=== PATIENT | female | born 1950 | race Caucasian/White ===

== ENCOUNTER → 2016-08-02 | Outpatient (CLI) | payer MEDICARE, BC ==
--- NOTE | 2016-08-02 11:09 | KCIC ---
PROCEDURE Coronary artery calcium score HISTORY Cardiovascular screening. Chronic fatigue. Dyspnea on exertion. TECHNIQUE Computed tomography of the heart was performed with ECG gating, suspended respiration and without the administration of contrast material. Post processing was performed on the 3-D computer workstation using diastolic phase images to measure the amount of coronary vascular calcium. Scoring was acquired using the Agatston Method. PQRS: One or more the following individualized dose reduction techniques were utilized for the study: 1. Automated exposure control. 2. Adjustment of the mA and/or kV according to patient size. 3. Use of iterative reconstruction technique. COMPARISON None. FINDINGS Thorax: Great vessels are normal caliber. Cardiac size normal, no pericardial effusion. There is mild mitral annular calcification. Minimal aortic annular calcification. No pleural abnormality. 3 millimeter nodule left upper lobe, image 15. 3 millimeter nodules posterior right and left lower lobes, image 40. According to Fleischner Society Recommendations, if the patient does not have significant risk factors for lung malignancy such as a smoking history, no further follow up is required. Radiology, 2004;237(2):395-400. Note that this CT exam is limited to the heart and adjacent structures. Coronary arteries: CALCIUM IS NOT PRESENT. TOTAL AGATSTON CALCIUM SCORE EQUALS 0. No calcification is seen in the left main, LAD, RCA, or circumflex artery. This does not absolutely rule out the presence of atherosclerotic plaque, including unstable plaque, but does imply a very low likelihood of significant luminal narrowing or obstruction. A negative test may be consistent with a low risk of cardiovascular event in the next 2 to 5 years. IMPRESSION No coronary artery calcium is identified. RECOMMENDATIONS Healthy lifestyle choices including cessation of smoking and eating appropriately and exercise are encouraged. Additional supporting information concerning the findings and recommendation contained within this report can be found in the consensus statements on coronary vascular calcium published by the [place] [employer] and [place] [employer] and Prevention 5 Conference (Circulation 1996; 94: 2111-5561; J Am Cesar Cardiol 2000; 36: 326-340 and Circulation 2000; 101: 111-116). Electronically signed by: Higinio Snyder MD (Aug 02, 2016 11:08:08)
--- NOTE | 2016-08-02 11:34 | KCIC ---
PROCEDURE Two-view chest. HISTORY Dyspnea, fatigue. COMPARISON No comparison. FINDINGS The cardiomediastinal silhouette is normal. Lungs are clear. No pleural effusion or pneumothorax. Degenerative endplate spurring in the thoracic spine. There is mild right convexity lumbar rotoscoliosis. There is old left posterior 7th rib fracture. IMPRESSION No acute cardiopulmonary process. Electronically signed by: Higinio Snyder MD (Aug 02, 2016 11:31:05)
== END | disposition home or self-care (01) ==
LOC: KCIC CT 08:52
PROVIDERS: ATTEND Family Medicine
DX: Z13.6 Encounter for screening for cardiovascular disorders (principal); I70.0 Atherosclerosis of aorta; I34.8 Other nonrheumatic mitral valve disorders; R53.83 Other fatigue; R06.00 Dyspnea, unspecified; M41.86 Other forms of scoliosis, lumbar region; S22.32XG Fracture of one rib, left side, subsequent encounter for fracture with delayed healing; X58.XXXD Exposure to other specified factors, subsequent encounter
CPT/HCPCS: 71020; 75571

== ENCOUNTER → 2016-10-11 | Outpatient (CLI) | payer MEDICARE ==
--- NOTE | 2016-10-11 11:18 | RAD ---
Abdominal ultrasound, 10/11/2016: History: Alcohol dependence The gallbladder is within normal limits in size. There is no sonographic evidence of cholelithiasis. The gallbladder wall is not thickened. No bile duct dilatation is seen. The liver is within normal limits in size. There is no evidence of a hepatic mass. The visualized portions of the pancreas are unremarkable. The spleen is of normal size. There is aortic atherosclerosis without evidence of aneurysm. The inferior vena cava is unremarkable. There is a 2.2 cm hyperechoic lesion seen in the right kidney. No other renal mass is evident. The kidneys show no evidence of obstruction. IMPRESSION: 1. Hyperechoic right renal mass arising the possibility of a lipoma or angiomyolipoma. Malignancy cannot be excluded. CT scanning is suggested for further evaluation. 2. Mild aortic atherosclerosis. 3. The abdominal ultrasound is otherwise unremarkable.
== END | disposition home or self-care (01) ==
LOC: US 07:53
PROVIDERS: ATTEND Nurse Practitioner Family
DX: I70.0 Atherosclerosis of aorta (principal)
CPT/HCPCS: 76700

== ENCOUNTER → 2016-10-18 | Outpatient (CLI) | payer MEDICARE ==
--- NOTE | 2016-10-22 11:41 | RESP ---
DATE OF SERVICE: 10/18/2016 The patient underwent full pulmonary function testing dated 10/18/2016. FEV1 to FVC ratio was 70%. FEV1 was 82% of predicted at 1.83 liters, FVC was 89% of predicted with 2.60 liters. There was a 12% bronchodilator response. Total lung capacity was elevated. Residual volume was elevated. IMPRESSION: 1. Mild airflow limitation. 2. Mild bronchodilator response. 3. Preserved diffusion capacity. BECKI PARMAR MD DR: MAIK/yuriy JOB#: [id number] / [id number] EVI Singer MD
== END | disposition home or self-care (01) ==
LOC: PF 09:55
PROVIDERS: ATTEND Internal Medicine Pulmonary Disease
DX: R06.02 Shortness of breath (principal)
CPT/HCPCS: 94060; 94729

== ENCOUNTER → 2016-10-21 | Outpatient (CLI) | payer MEDICARE ==
[~2016-10-21] MED LIST: IOHEXOL 300 MG/ML 75 ML VIAL IV ONE
--- NOTE | 2016-10-21 13:08 | RAD ---
Multiphase CT of the kidneys with and without contrast, 10/21/2016: History: Renal mass Imaging of the kidneys was performed prior to and following an IV bolus injection of iodinated contrast material. The postcontrast scans were obtained in arterial, portal venous and excretory phases. There is a 2.2 cm mass in the posterior aspect of the right kidney. On the noncontrast scans it demonstrates an internal CT number of 30 Hounsfield units. No fat is seen within this lesion. The postcontrast scans show heterogeneous enhancement up to approximately 150 Hounsfield units. In the delayed, excretory phase there is partial washout of the contrast. The appearance is that of a solid vascular neoplasm. No other renal mass is seen. The kidneys show no evidence of obstruction. The renal collecting systems and proximal ureters are unremarkable. No hepatic abnormality is detected. The gallbladder is unremarkable. No pancreatic abnormality is detected. The spleen is of normal size. There is mild aortic calcific plaquing. No retroperitoneal or mesenteric adenopathy is seen. There is a mild lumbar scoliosis with associated multilevel degenerative change. IMPRESSION: Solid, enhancing 2.2 cm right renal mass. Renal cell carcinoma is a likely possibility. PQRS Compliance Statement: One or more of the following individualized dose reduction techniques were utilized for this examination: 1. Automated exposure control 2. Adjustment of the mA and/or kV according to patient size 3. Use of iterative reconstruction technique
== END | disposition home or self-care (01) ==
LOC: CT 08:30
PROVIDERS: ATTEND Nurse Practitioner Family
DX: N28.1 Cyst of kidney, acquired (principal); N28.89 Other specified disorders of kidney and ureter
CPT/HCPCS: 74170; Q9967

== ENCOUNTER → 2016-11-19 | Outpatient (CLI) | payer MEDICARE ==
--- NOTE | 2016-11-20 08:16 | KCIC ---
Bilateral digital screening mammograms with CAD: HISTORY Routine screening COMPARISON Comparison is made to previous examinations dated 02/22/2015 and 12/10/2011. FINDINGS Breast density category C. The skin and nipples show no abnormalities. No abnormal lymph nodes are seen in the axilla. The breast parenchyma shows heterogeneous density. There continue to be patchy areas of parenchymal asymmetry in the breasts which are unchanged. There are no dominant masses, suspicious calcifications or architectural distortions. IMPRESSION No evidence of malignancy. Recommend routine annual mammographic screening. This study was interpreted with the benefit of Computerized Aided Detection (CAD). Mammography is not 100% sensitive in detecting breast cancer. Therefore, a self breast exam and a clinical breast exam are very important. A negative mammogram does not negate a clinically suspicious finding and should not result in a delay in biopsying a clinically suspicious abnormality. BI-RADS category 2: Benign. This patient's information has been entered into a reminder system for the patient to be notified with the results of this examination and a target date for her next mammograms. Electronically signed by: Lena Rodriguez MD (November 20, 2016 08:14:26)
== END | disposition home or self-care (01) ==
LOC: KCIC MAMMO 13:06
PROVIDERS: ATTEND Family Medicine
DX: Z12.31 Encounter for screening mammogram for malignant neoplasm of breast (principal)
CPT/HCPCS: G0202; 77067

== ENCOUNTER → 2016-11-22 | Outpatient (CLI) | payer MEDICARE ==
--- NOTE | 2016-11-22 12:56 | RAD ---
Indication persistent cough. Axial noncontrast images of the chest were obtained. No prior CT imaging of the entire chest is available for comparison purposes. Imaging through the upper abdomen is unremarkable. The thoracic aorta appears unremarkable. There is no significant hilar or mediastinal adenopathy. No acute parenchymal infiltrate is seen. Significant interstitial or emphysematous changes are not seen. There is no dominant soft tissue mass. IMPRESSION: No acute or significant finding seen in the chest PQRS Compliance Statement: One or more of the following individualized dose reduction techniques were utilized for this examination: 1. Automated exposure control 2. Adjustment of the mA and/or kV according to patient size 3. Use of iterative reconstruction technique
== END | disposition home or self-care (01) ==
LOC: CT 12:10
PROVIDERS: ATTEND Internal Medicine Pulmonary Disease
DX: R05 Cough (principal)
CPT/HCPCS: 71250

== ENCOUNTER → 2017-03-10 | Outpatient (CLI) | payer MEDICARE ==
--- NOTE | 2017-03-10 11:55 | KCIC ---
CT Abdomen and Pelvis without contrast History: Right inguinal hernia, recent bulge of the right groin, history of right partial nephrectomy Technique: Noncontrast CT imaging was performed of the abdomen and pelvis. Multiplanar images are reviewed. Exposure: One or more of the following individualized dose reduction techniques were utilized for this examination: 1. Automated exposure control 2. Adjustment of the mA and/or kV according to patient size 3. Use of iterative reconstruction technique. Comparison: October 21, 2016 Findings: There is no abnormality of the limited visualized lung bases.Accurate evaluation of abdominal visceral organs is limited without intravenous contrast. There is no obvious abnormality of the spleen, liver, or pancreas. There is no adrenal nodularity. Gallbladder is present without obvious intraluminal abnormality by CT. Accurate evaluation of bowel is limited without oral contrast. There is a small umbilical fascial defect, does not contain any bowel. There is minimal fat in the inguinal canals greater on the right, no internal bowel. There is likely right adnexal cyst on the order of 3.5 cm transverse by 2.7 cm AP. There is variable retained stool in the colon somewhat greater in the right colon. Normal appendix is visualized. There are now some foci of calcification along the surface of the right kidney. Exam does not accurately evaluate for residual mass, no obvious exophytic mass of the right kidney. There has been interval partial right nephrectomy. There is no hydronephrosis of either kidney. There is zcpi-en-yddqujkg S-shaped scoliosis of the lumbar spine. There is multilevel lumbar facet degenerative change. Impression: 1. There is minimal fat in the inguinal canals greater on the right, no bowel. No bowel containing hernia is identified. There is retained stool somewhat greater in the right colon. 2. There are now some foci of calcification along the margin of the right kidney, interval partial right nephrectomy. 3. There is S-shaped scoliosis of the lumbar spine, multilevel lumbar facet degenerative change. 4. There is likely right adnexal cyst up to 3.5 cm. Electronically signed by: Rolo Hewitt MD (03/10/2017 11:52 AM) [facility]
== END | disposition home or self-care (01) ==
LOC: KCIC CT 10:51
PROVIDERS: ATTEND Nurse Practitioner Family
DX: K40.90 Unilateral inguinal hernia, without obstruction or gangrene, not specified as recurrent (principal); M41.9 Scoliosis, unspecified; Z90.5 Acquired absence of kidney
CPT/HCPCS: 74176

== ENCOUNTER → 2018-05-08 | Outpatient (CLI) | payer MEDICARE ==
--- NOTE | 2018-05-08 16:06 | KCIC ---
MRI of the lumbar spine without contrast 05/08/2018 CLINICAL HISTORY: Chronic low back pain which radiates down the right leg worsening of late. TECHNIQUE: Unenhanced T1-weighted and T2-weighted sagittal and axial and inversion recovery sagittal images of the lumbar spine were obtained. FINDINGS: Mild to moderate S-shaped curvature of the thoracolumbar spine is seen. Degenerative signal changes and loss of height are seen involving all of the disks of the lumbar spine. Degenerative signal changes are seen within the marrow surrounding these discs. The conus medullaris is normal morphology, position, and signal characteristics. At the L1-2 disc space there is a mild generalized disc bulge. Degenerative changes are seen involving the facet joints bilaterally. There is mild ligamentum flavum hypertrophy bilaterally. These findings do not result in significant central spinal canal or neural foraminal stenosis. At the L2-3 disc space there is a mild to moderate generalized disc bulge. Degenerative changes are seen involving the facet joints bilaterally. There are small facet joint effusions. There is moderate ligamentum flavum hypertrophy bilaterally. The disc bulge is eccentric to the left. These findings when combined result in mild left greater than right central spinal canal stenosis. Mild left neural foraminal stenosis is seen. The right neural foramen is patent. At the L3-4 disc space there is a moderate generalized disc bulge. This is eccentric to the left. Degenerative changes are seen involving the facet joints bilaterally. There is moderate ligamentum flavum hypertrophy bilaterally. These findings when combined result in mild to moderate central spinal canal stenosis. Mild left neural foraminal stenosis is seen. The right neural foramen is patent. At the L4-5 disc space there is a mild to moderate generalized disc bulge. This is eccentric to the right. Degenerative changes are seen involving the facet joints bilaterally. There is mild to moderate ligamentum flavum hypertrophy bilaterally. These findings when combined result in mild to moderate central spinal canal stenosis. Mild right neural foraminal stenosis is seen. The left neural foramen is patent. At the L5-S1 disc space there is a mild generalized disc bulge. Degenerative changes are seen involving the facet joints bilaterally. These findings when combined do not result in significant central spinal canal or neural foraminal stenosis. IMPRESSION: The changes of degenerative disc disease are seen throughout the lumbar spine. These findings result in mild left greater than right central spinal canal stenosis at L2-3 and mild to moderate central spinal canal stenosis at L3-4 and L4-5. Mild left neural foraminal stenosis is seen at L2-3 and L3-4. Mild right neural foraminal stenosis is seen at L4-5. Electronically signed by: Brando Ku MD (05/08/2018 4:03 PM) [facility]
== END | disposition home or self-care (01) ==
LOC: KCIC MRI 15:15
PROVIDERS: ATTEND Nurse Practitioner Family
DX: M51.36 Other intervertebral disc degeneration, lumbar region (principal); M47.896 Other spondylosis, lumbar region; M48.061 Spinal stenosis, lumbar region without neurogenic claudication; M54.41 Lumbago with sciatica, right side; G89.29 Other chronic pain; M85.80 Other specified disorders of bone density and structure, unspecified site; M41.9 Scoliosis, unspecified; M48.9 Spondylopathy, unspecified
CPT/HCPCS: 72148

== ENCOUNTER → 2018-09-14 | Outpatient (CLI) | payer MEDICARE ==
--- NOTE | 2018-09-14 10:10 | CARD ---
MR#: [id number] Date of Study: 09/14/2018 Ordering Physician: AYDEE VANCE, Referring Physician: AYDEE VANCE, Tech: Kathy Rader RDCS APPROVED REPORT EXAM: Two-dimensional and M-mode echocardiogram with Doppler and color Doppler. Other Information Quality : Good Technically limited study due to body habitus. INDICATION Murmur 2D DIMENSIONS RVDd2.2 (2.9-3.5cm)Left Atrium(2D)2.5 (1.6-4.0cm) IVSd0.7 (0.7-1.1cm)Aortic Root(2D)2.5 (2.0-3.7cm) LVDd3.7 (3.9-5.9cm)LVOT Diameter1.9 (1.8-2.4cm) PWd0.7 (0.7-1.1cm)LVDs2.3 (2.5-4.0cm) FS (%) 30.0 %SV40.8 ml LVEF(%)60.0 (>50%) Aortic Valve AoV Peak [place].110.0cm/sAoV VTI23.5cm AO Peak GR.4.8mmHgLVOT Peak [place].89.8cm/s LVOT VTI 23.00cmAO Mean GR.3mmHg GOYO (VMAX)2.76kl7GPU (VTI)2.81cm2 Mitral Valve MV E Ctzetbob22.0cm/sMV DECEL PDQD053zo MV A Jrakmckg89.7cm/sMV QFO74vk E/A Ratio1.1MVA (PHT)3.95cm2 TDI E/Lateral E'9.8E/Medial E'15.3 Tricuspid Valve TR P. Mkrwipqm552nf/sRAP TRATITNK8siLj TR Peak Gr.50mnKyFFUH10puOy Pulmonary Vein S1 Nboqgwtq30.0cm/sD2 Wvhfudlk71.2cm/s LEFT VENTRICLE The left ventricle is normal size. There is normal left ventricular wall thickness. The left ventricu lar systolic function is normal and the ejection fraction is within normal range. The Ejection Fracti on is 55-60%. There is normal LV segmental wall motion. Transmitral Doppler flow pattern is Grade I-a bnormal relaxation pattern. RIGHT VENTRICLE The right ventricle is normal size. The right ventricular systolic function is normal. ATRIA The left atrium size is normal. The right atrium size is normal. The interatrial septum is intact wit h no evidence for an atrial septal defect or patent foramen ovale as noted on 2-D or Doppler imaging. AORTIC VALVE The aortic valve is normal in structure and function. Doppler and Color Flow revealed no significant aortic regurgitation. There is no significant aortic valvular stenosis. MITRAL VALVE The mitral valve is calcified but opens well. There is no evidence of mitral valve prolapse. There is no mitral valve stenosis. Doppler and Color-flow revealed trace mitral regurgitation. TRICUSPID VALVE The tricuspid valve is normal in structure and function. Doppler and Color Flow revealed trace tricus pid regurgitation. There is mild pulmonary hypertension. The PA pressure was estimated at 33 mmHg. Th ere is no tricuspid valve stenosis. PULMONIC VALVE The pulmonic valve is not well visualized. Doppler and Color Flow revealed no pulmonic valvular regur gitation. There is no pulmonic valvular stenosis. GREAT VESSELS The aortic root is normal in size. The ascending aorta is normal in size. The IVC is normal in size a nd collapses >50% with inspiration. PERICARDIAL EFFUSION There is no evidence of significant pericardial effusion. Critical Notification Critical Value: No <Conclusion> The left ventricular systolic function is normal and the ejection fraction is within normal range. Th e Ejection Fraction is 55-60%. There is normal LV segmental wall motion. Doppler and Color Flow revealed trace tricuspid regurgitation. There is mild pulmonary hypertension. The PA pressure was estimated at 33 mmHg. Signed by : Beni Yee, Electronically Approved : 09/14/2018 10:10:36
--- NOTE | 2018-09-14 11:29 | RAD ---
MR#: [id number] Date of Study: 09/14/2018 Ordering Physician: AYDEE VANCE, Referring Physician: VIKRAM LITTLE Tech: TESSA [place], ARRT (R) (N) APPROVED REPORT Test Type: Exercise Stress Nurse/Tech: Emmanuel DRISCOLL Test Indications: Dyspnea on exertion Cardiac History: See EMR Medications: See EMR Medical History: Kidney CA stage III, Partial nephrectomy Resting ECG: SR Resting Heart Rate: 78 bpm Resting Blood Pressure: 113/68mmHg Pretest Chest Pain: No chest pain Nurse/Tech Notes Lungs sounds clear, though diminished. Heart tones regular. Consent: The procedure was explained to the patient in lay terms. Informed consent was witnessed. Ashutosh eout was entered into [employer]. History and Stress Test performed by RT Sarah (R) (N) Stress Symptoms Dyspnea POST EXERCISE Reason for Termination: Reached target heart rate Target HR: Yes Max HR: 149 bpm 114% of Maximum Predicted HR: 130 bpm Exercise duration: 8:20 min:sec, 3 Stage Exercise capacity: 10.0METs Max Blood Pressure: 146/70mmHg Blood Pressure response to exercise: Normal blood pressure response during stress. Chest Pain: No. Arrhythmia: No. ST Change: No. INTERPRETATION Stress EKG Conclusion: Moderate artifact due to motion. No significant ischemia noted. Imaging Protocol IMAGE PROTOCOL: Rest Tc-99m/stress Tc-99m 1 day Rest: Stress: Viability: Radiopharm.Tc99m NfqembyyaMx47a Sestamibi Zqwt17yVe 32.3mCi Img Date 09/14/2018 09/14/2018 Inj-Img Bcik79nom. 60min. Rest Admin Site:IV - Left AntecubitalAdministrator:NANDO Vieyra Stress Admin Site: IV - Left AntecubitalAdministrator: RT Sarah (R)(N) STRESS DATA End Diast. Vol.35.0mlLVEDV index BSA23.0ml End Syst. Vol.2.0mlLVESV index BSA1.0ml Myocardial Mass74.0gEject. Ntvvekoa20.0% Stress Scores Regional WT0.00Summed WT0.00 Regional WM0.00Summed WM0.00 The rest and stress images show normal perfusion, normal contraction and thickening. LV Perf. Quant 17 Seg. SSS0.00 17 Seg. SRS0.00 17 Seg. SDS0.00 Stress Defect Extent (% LAD)0.00Rest Defect Extent (% LAD)0.00Rev. Defect Extent (% LAD)0.00 Stress Defect Extent (% LCX) 0.00Rest Defect Extent (% LCX)0.00Rev. Defect Extent (% LCX)0.00 Stress Defect Extent (% RCA)0.00Rest Defect Extent (% RCA)0.00Rev. Defect Extent (% RCA)0.00 Stress Defect Extent (% JACKY)0.00Rest Defect Extent (% JACKY)0.00Rev. Defect Extent (% JACKY)0.00 Other Information Quality:Good Risk Assessment: Low Risk Conclusion 1. No evidence of EKG changes with stress testing. 2. Normal perfusion at stress/rest. 3. Low risk study. 4. EF > 60%. Signed by : Beni Yee, Electronically Approved : 09/14/2018 11:29:22
== END | disposition home or self-care (01) ==
LOC: NM 07:34
PROVIDERS: ATTEND Internal Medicine Cardiovascular Disease
DX: I27.20 Pulmonary hypertension, unspecified (principal); R00.8 Other abnormalities of heart beat; Z85.528 Personal history of other malignant neoplasm of kidney
CPT/HCPCS: 78452; 93017; 93306; 96374; 96376; A9500

== ENCOUNTER 2019-01-17 16:07 | Emergency (ER) | payer MEDICARE ==
[~2019-01-17] VITALS: Ht 157.5 cm; Wt 56.7 kg
[2019-01-17 16:09] VITALS: BP 127/65
[2019-01-17] MEDS ORDERED: METH4TAB2 PO (16:35)
[2019-01-17] MEDS ORDERED: DICL50TA4 PO (16:35)
--- NOTE | 2019-01-17 16:35 | PHYS DOC ---
Past Medical History Past Medical History: Cancer, Other Additional Past Medical Histor: KIDNEY CA,SLEEP ISSUES Past Surgical History: Other Additional Past Surgical Histo: FACIAL,PARTIAL NEPHRECTOMY Alcohol Use: None Drug Use: None Adult General Chief Complaint Chief Complaint: KNEE INJURY HPI HPI Patient is a 68 year old female who presents to the ED today complaining of mild left lateral knee pain described as sharp and intermittent that occurred when she was walking up 1 step. Patient denies falling. She states the pain is worse on flexion of the knee area and she states immobilization relieves the pain. She is requesting an MRI. Review of Systems Review of Systems Constitutional: Denies fever or chills [] Musculoskeletal: Reports left knee pain Integument: Denies rash or skin lesions [] Neurologic: Denies headache, focal weakness or sensory changes [] All other systems were reviewed and found to be within normal limits, except as documented in this note. Allergies Allergies Allergies Coded Allergies Type Severity Reaction Last Updated Verified morphine Allergy Mild 10/21/16 Yes Physical Exam Physical Exam Constitutional: Well developed, well nourished, no acute distress, non-toxic appearance. [] Extremities: Left knee with no obvious deformity. Slight tenderness on palpation of the left lateral knee. Limited range of motion to the left knee due to pain. +2 left pedal pulse. Cap refill less than 2 seconds left toes. Sensation intact to the left lower extremity. Neurologic: Alert and oriented X 3, normal motor function, normal sensory function, no focal deficits noted. [] Psychologic: Affect normal, judgement normal, mood normal. [] Current Patient Data Vital Signs Vital Signs Date Time Temp Pulse Resp B/P (MAP) Pulse Ox O2 Delivery O2 Flow Rate FiO2 01/17/19 16:09 98.3 82 17 127/65 (85) 96 Room Air 98.3 EKG EKG [] Radiology/Procedures Radiology/Procedures [] Course & Med Decision Making Course & Med Decision Making Pertinent Labs and Imaging studies reviewed. (See chart for details) This is a 68-year-old female patient who presents to the ED today with complaints of left knee pain, no known injury. Requesting MRI of the knee. Informed patient we do not do MRI is of the knee in the emergency room. Recommended following up with orthopedic doctor as well as primary care doctor. Given prescription for diclofenac and Medrol Dosepak. Provided immobilizer off the knee applied by the ED RN, neurovascular exam is intact post-immobilizer application. Ice elevation encouraged. Dragon Disclaimer Dragon Disclaimer This electronic medical record was generated, in whole or in part, using a voice recognition dictation system. Departure Departure Impression: Primary Impression: Left knee pain Disposition: 01 HOME, SELF-CARE Condition: STABLE Referrals: HENRY TAYLOR MD (PCP) follow up in 1 week NANY ROBBINS II, MD follow up in 1 week Patient Instructions: Knee Pain, Qfap-pv-Dlom Additional Instructions: You were evaluated in the emergency room for left knee pain wear the immobilizer provided as tolerated and needed. Please contact your own primary care doctor or the orthopedic doctor provided and they will see to up for an outpatient MRI. Scripts Diclofenac Sodium (DICLOFENAC SODIUM) 50 Mg Tablet.dr 1 TAB PO BID, #20 TAB 0 Refills Prov: ISAI DESOUZA RODOLFO 01/17/19 Methylprednisolone (MEDROL) 4 Mg Tab.ds.pk 1 PKG PO UD, #1 PKG Prov: MAEGANMIRIAMSimranISAI VARGASN 01/17/19 Problem Qualifiers Primary Impression: Left knee pain Chronicity: acute Qualified Codes: M25.562 - Pain in left knee ISAI DESOUZA [employer] OP Jan 17, 2019 16:35
== END 2019-01-17 16:51 | disposition home or self-care (01) ==
LOC: ER 16:07
DX: M25.562 Pain in left knee (principal); Z88.5 Allergy status to narcotic agent
CPT/HCPCS: 29505; 99283

== ENCOUNTER → 2020-07-03 | Outpatient (CLI) | payer MEDICARE ==
[~2020-07-03] MED LIST changes: +DICL50TA4 PO; -IOHEXOL 300 MG/ML 75 ML VIAL IV ONE; +METH4TAB2 PO
--- NOTE | 2020-07-03 18:58 | KCIC ---
DEXA scan 07/03/2020 Clinical History: Postmenopausal female. Risk factors for osteoporosis. Technique: DEXA of the lumbar spine and left hip was performed. FINDINGS: Comparison study is dated 08/30/2011. The bone mineral density of the lumbar spine is g/cm2 which corresponds with a T-score of 0.880 . Th is is consistent with mild osteopenia. This has increased since the previous examination where it norris sured 0.808 g/sq cm. The mean bone mineral density of the left hip is 0.652 g/sq cm. This corresponds to a T score of -2.4 . This is consistent with severe osteopenia. This has decreased since the previous study where it norris sured 0.737 g/sq cm By [employer] on Osteoporosis criteria, a T score of 0 to-1 SD is considered to be within normal limits. A T score of -1 to -2.5 SD is considered osteopenia. A T score less than -2.5 SD is conside red osteoporosis Impression: 1. Mild osteopenia of the lumbar spine. The mean bone mineral density of the lumbar spine has increas ed since the previous study. 2. . Severe osteopenia of the left hip. The mean bone mineral of the left hip has decreased since the previous study. Electronically signed by: Brando Ku MD (07/03/2020 6:55 PM) [place] [id number]
== END ==
LOC: KCIC DEXA 14:27
PROVIDERS: ATTEND Nurse Practitioner Family
DX: M81.6 Localized osteoporosis [Lequesne] (principal); M85.88 Other specified disorders of bone density and structure, other site
CPT/HCPCS: 77080

== ENCOUNTER → 2020-07-03 | Outpatient (CLI) | payer MEDICARE ==
--- NOTE | 2020-07-03 17:01 | KCIC ---
Bilateral digital screening mammograms: Reason for examination: Routine screening. Comparison is made to previous studies dated 11/19/2016 and 02/22/2015. Interpretation was made with the benefit of CAD. The skin and nipples show no abnormalities. No abnormal axillary lymph nodes are seen. The breast par enchyma is extremely dense. (Breast density: Category D.) There are no dominant masses, suspicious ca lcifications or architectural distortion. Impression: No evidence of malignancy. Recommend routine screening. Your patient's mammogram demonstrates that she has dense breast tissue (breast density category C or D), which could hide abnormalities, and if she has other risk factors for breast cancer that have bee n identified, she might benefit from supplemental screening tests that may be suggested by you as her ordering physician. Dense breast tissue, in and of itself, is a relatively common condition. Therefo re, this information is not provided to cause undue concern, but rather to raise your awareness and t o promote discussion with your patient regarding the presence of other risk factors, in addition to d ense breast tissue. Your patient's mammography results will be sent to her. BI-RAD Category 2: Benign. "Our facility is accredited by the [employer] Mammography Program." This patient's information has been entered into a reminder system for the patient to be notified wit h the results of her examination and a target date for the next mammogram. Electronically signed by: Gina Rodriguez MD (07/03/2020 4:58 PM) [id number]
== END ==
LOC: KCIC MAMMO 14:38
PROVIDERS: ATTEND Family Medicine
DX: Z12.31 Encounter for screening mammogram for malignant neoplasm of breast (principal)
CPT/HCPCS: 77067